=== PATIENT | female | born 1975 | race Caucasian/White ===

== ENCOUNTER 2018-09-27 11:04 | Emergency (ER) | payer MEDICAID ==
[~2018-09-27] VITALS: Ht 154.9 cm; Wt 68.9 kg
[2018-09-27 11:12] VITALS: BP_SYST 115
[2018-09-27] MEDS ORDERED: traMADol HCL HCL 50 MG TABLET (ULTRAM) PO ONE (11:30)
[2018-09-27 12:21] VITALS: BP_SYST 119
== END 2018-09-27 12:21 | disposition home or self-care (01) ==
LOC: SED 11:04
DX: M54.40 Lumbago with sciatica, unspecified side (principal); R03.0 Elevated blood-pressure reading, without diagnosis of hypertension
CPT/HCPCS: 72100-TC; 81002; 81025; 99283